=== PATIENT | male | born 1955 | race Caucasian/White ===

== ENCOUNTER 2019-01-25 09:54 | Inpatient (IN) | payer OTHER | END 2019-01-26 17:30 | disposition home or self-care (01) | LOC: J4W 01-26 01:41 → JER 09:54 → JERBED 14:49 ==

== ENCOUNTER 2024-05-09 03:56 | Day surgery (SDC) | payer OTHER ==
[2024-04-12 13:28] VITALS: BMI 26.8
[2024-05-09 06:26] VITALS: RESP 18; TEMP 97.3
[2024-05-09] MEDS ORDERED: LIDOCAINE HCL/PF 2% SDV 5ML VIAL ONE (07:21)
[2024-05-09] MEDS ORDERED: PROPOFOL 20 ML ONE (07:21)
[2024-05-09] MEDS ORDERED: MIDAZOLAM HCL 2 MG/2 ML SINGLE DOSE VIAL ONE (07:22)
[2024-05-09] MEDS ORDERED: BACITRACIN ZINC 15 GM TUBE TOPICAL OINTMENT ONE (07:35)
[2024-05-09] MEDS ORDERED: BUPIVACAINE HCL/PF 0.25% (2.5MG/ML) 10 ML VIAL ONE (07:35)
[2024-05-09] MEDS ORDERED: SUCCINYLCHOLINE CHLORIDE 200 MG/10 ML SYRINGE ONE (07:52)
[2024-05-09] MEDS ORDERED: DEXAMETHASONE SOD PHOSPHATE 4 MG/1 ML VIAL ONE (08:02)
[2024-05-09] MEDS ORDERED: cefOXitin SODIUM 2 GM VIAL (RESTRICTED TO ID) IVPB ONE (08:08)
[2024-05-09] MEDS: cefOXitin SODIUM 2 GM VIAL (RESTRICTED TO ID) IVPB ONE (08:17)
[2024-05-09] MEDS ORDERED: ONDANSETRON 4 MG/2 ML VIAL IVPUSH PRN (08:36)
[2024-05-09] MEDS ORDERED: PROMETHAZINE HCL 25 MG/1 ML VIAL IVPB PRN (08:36)
[2024-05-09] MEDS ORDERED: ACETAMINOPHEN 1000 MG/100 ML BAG IVPB ONE (08:36)
[2024-05-09] MEDS ORDERED: oxyCODONE HCL 5 MG TABLET PO PRN ×2 (08:36)
[2024-05-09] MEDS: BUPIVACAINE HCL/PF 0.25% (2.5MG/ML) 10 ML VIAL IJ ONE (08:42)
[2024-05-09] MEDS ORDERED: LACTATED RINGERS SOLUTION 1,000 ML IV SCH (08:45)
[2024-05-09] MEDS ORDERED: KETOROLAC TROMETHAMINE 30 MG/1 ML VIAL ONE (09:39)
[2024-05-09] MEDS ORDERED: ONDANSETRON 4 MG/2 ML VIAL ONE (09:39)
[2024-05-09 13:10] VITALS: BP 118/63; PULSE 60
== END 2024-05-09 12:31 | disposition home or self-care (01) ==
LOC: JASU-SURG 03:56
PROVIDERS: ATTEND Surgery
PROC: 0J9B0ZX Drainage of Perineum Subcutaneous Tissue and Fascia, Open Approach, Diagnostic (ICD-10-PCS; principal; 2024-05-09 08:00)
DX: K61.4 Intrasphincteric abscess (principal)
CPT/HCPCS: 94760

== ENCOUNTER 2024-07-11 04:58 | Day surgery (SDC) | payer OTHER ==
[2024-07-07 10:49] VITALS: BMI 26.8
[2024-07-11] MEDS ORDERED: BUPIVACAINE HCL/PF 0.25% (2.5MG/ML) 10 ML VIAL ONE (07:24)
[2024-07-11] MEDS ORDERED: PROPOFOL 20 ML ONE (09:26)
[2024-07-11] MEDS ORDERED: MIDAZOLAM HCL 2 MG/2 ML SINGLE DOSE VIAL ONE (09:26)
[2024-07-11] MEDS: BUPIVACAINE HCL/PF 0.25% (2.5MG/ML) 10 ML VIAL IJ ONE ×2 (09:55)
[2024-07-11] MEDS ORDERED: LACTATED RINGERS SOLUTION 1,000 ML IV SCH (10:30)
[2024-07-11 11:01] VITALS: TEMP 97.3
[2024-07-11] MEDS ORDERED: ACETAMINOPHEN 325 MG TABLET (FP) ONE (11:55)
[2024-07-11] MEDS: ACETAMINOPHEN 325 MG TABLET (FP) PO ONE (12:01)
[2024-07-11 12:05] VITALS: RESP 20
[2024-07-11 13:03] VITALS: BP 135/81; PULSE 62
== END 2024-07-11 14:35 | disposition home or self-care (01) ==
LOC: JASU-SURG 04:58
PROVIDERS: ATTEND Surgery
PROC: 0DPQ7LZ Removal of Artificial Sphincter from Anus, Via Natural or Artificial Opening (ICD-10-PCS; 2024-07-11)
PROC: 0D9Q70Z Drainage of Anus with Drainage Device, Via Natural or Artificial Opening (ICD-10-PCS; principal; 2024-07-11 08:00)
DX: K60.30 Anal fistula, unspecified (principal)
CPT/HCPCS: 94760

== ENCOUNTER 2024-07-24 04:51 | Day surgery (SDC) | payer OTHER ==
[2024-07-21 15:25] VITALS: BMI 26.6
[2024-07-24 06:43] VITALS: RESP 16
[2024-07-24] MEDS ORDERED: BACITRACIN ZINC 15 GM TUBE TOPICAL OINTMENT ONE ×2 (08:49→09:08)
[2024-07-24] MEDS ORDERED: BUPIVACAINE HCL/PF 0.25% (2.5MG/ML) 10 ML VIAL ONE ×2 (08:49→09:08)
[2024-07-24] MEDS ORDERED: PROPOFOL 20 ML ONE (09:48)
[2024-07-24] MEDS ORDERED: SUCCINYLCHOLINE CHLORIDE 200 MG/10 ML SYRINGE ONE (09:49)
[2024-07-24] MEDS ORDERED: MIDAZOLAM HCL 2 MG/2 ML SINGLE DOSE VIAL ONE (09:49)
[2024-07-24] MEDS: cefOXitin SODIUM 2 GM VIAL (RESTRICTED TO ID) IVPB ONE (10:34)
[2024-07-24] MEDS ORDERED: ONDANSETRON 4 MG/2 ML VIAL ONE (10:34)
[2024-07-24] MEDS ORDERED: DEXAMETHASONE SOD PHOSPHATE 4 MG/1 ML VIAL ONE (10:34)
[2024-07-24] MEDS: BUPIVACAINE HCL/PF 0.25% (2.5MG/ML) 10 ML VIAL IJ ONE (11:05)
[2024-07-24] MEDS: LACTATED RINGERS SOLUTION 1,000 ML IV SCH (11:15)
[2024-07-24] MEDS ORDERED: oxyCODONE HCL 5 MG TABLET PO PRN (11:37)
[2024-07-24] MEDS ORDERED: ONDANSETRON 4 MG/2 ML VIAL IVPUSH PRN (11:37)
[2024-07-24 16:05] VITALS: BP 128/82; PULSE 56; TEMP 97.1
== END 2024-07-24 15:00 | disposition home or self-care (01) ==
LOC: JASU-SURG 04:51
PROVIDERS: ATTEND Surgery
PROC: 0DPQ7LZ Removal of Artificial Sphincter from Anus, Via Natural or Artificial Opening (ICD-10-PCS; 2024-07-24)
PROC: 0D9Q70Z Drainage of Anus with Drainage Device, Via Natural or Artificial Opening (ICD-10-PCS; principal; 2024-07-24 10:00)
DX: K60.30 Anal fistula, unspecified (principal)
CPT/HCPCS: 94760